=== PATIENT | male | born 1960 | race Caucasian/White ===

== ENCOUNTER 2018-03-24 15:06 | Observation (INO) ==
[2018-03-24] MEDS ORDERED: Ondansetron ODT 4 MG TAB.RAPDIS SL ONE (15:21)
[2018-03-24] MEDS ORDERED: diazePAM 10 MG/2 ML SYRINGE IVP ONE (15:21)
[2018-03-24] MEDS ORDERED: Tdap (Boostrix) Vaccine 0.5 ML SYRINGE IM ONE (15:23)
--- NOTE | 2018-03-24 15:28 | Emergency Department Note ---
Disposition Clinical Impression: Vertigo Syncope Qualifiers: Syncope type: unspecified Qualified Code(s): R55 - Syncope and collapse Disposition: Admitted As Inpatient Condition: Fair Time of Disposition: 17:29 General Adult HPI - General Chief complaint: ED Syncope Stated complaint: Passed Out Time Seen by Provider: 03/24/18 15:07 Source: patient, EMS Mode of arrival: EMS Limitations: no limitations Nursing Notes Reviewed: Yes Vital Signs Reviewed: Yes - History of Present Illness HPI Narrative: 57 yo male presents via EMS after a syncopal episode. He has a PMHx of vertigo, COPD, and PR with one stent. He states today he was sitting down when he got a sudden wave a vertigo, which he describes as the room spinning causing extreme nausea, and then he woke up on the ground. He still complains of the vertigo and also states his head and nose hurt. He admits to some shortness of breath and congestion along with this. He denies chest pain, abdominal pain, V/D/C, leg pain or leg swelling. He states he usually gets veritgo once or twice a month but has never had it this bad and denies any previous episodes of syncope. Pain Scale: 3 - Related Data Previous Rx's Medication Instructions Recorded Cyclobenzaprine [Flexeril] 10 mg PO BID #15 tablet 04/13/15 OxyCODONE/APAP 5/325 [Percocet 1 each PO Q4HR #15 tablet 04/13/15 5/325] Meclizine [Antivert] 25 mg PO TID PRN #20 tablet 09/14/15 Ondansetron ODT [Zofran ODT] 4 mg SL Q8HR #14 tab.rapdis 10/23/15 Allergies Allergy/AdvReac Type Severity Reaction Status Date / Time No Known Allergies Allergy Verified 10/23/15 12:37 All systems ED: reviewed and negative except as stated. Review of Systems: As Per HPI Constitutional: Denies: fever, chills, weakness Eyes: Denies: vision change ENT ED: Reports: congestion. Denies: ear pain, throat pain, dysphagia Cardiovascular: Reports: dyspnea on exertion, syncope. Denies: chest pain, palpitations, edema Respiratory: Reports: dyspnea. Denies: cough, wheezes, hemoptysis Gastrointestinal: Reports: nausea. Denies: abdominal pain, vomiting, diarrhea, constipation Musculoskeletal: Denies: back pain, neck pain Integumentary: Denies: rash Neurological: Reports: headache. Denies: weakness, numbness, paresthesias, confusion Psychiatric: Denies: anxiety Endocrine: Denies: fatigue Hematological/Lymphatic: Denies: easy bleeding Past Medical History - Past Medical History Medical history: Reports: COPD, hypertension, myocardial infarction, other Psychiatric history: Reports: no psych history - Social History Smoking Status: Former smoker Smokeless Tobacco Status: No Alcohol use: Reports: none Drug use: Reports: none Physical Exam There is a raised area of erythema on the left side of the patient's forehead that is tender to touch without fluctuance. He has a small, 0.1 cm linear cut above his left eye which is not currently bleeding and will not require repair. His nose is swollen without obvious deformity or deviation to his septum, and no evidence of bleeding. TMs visible B/L without erythema or signs of infection. Throat non-erythematous without visible lesions. Mucus membranes dry. Sensory exam grossly normal. Strength 5/5 in all extremities. DTRs wnl on all four extremities. CN 2-12 grossly intact. - General Limitations: no limitations General appearance: alert, in no apparent distress - Eye Eye exam: Present: normal appearance, PERRL, EOMI, nystagmus (horizontal ) - Neck Neck exam: Present: normal inspection. Absent: tenderness, lymphadenopathy - Chest Chest inspection: Present: normal inspection - Respiratory Respiratory exam: Present: other (diminished breath sounds B/L) - Cardiovascular Cardiovascular exam: Present: regular rate, normal rhythm - Abdominal Exam Abdominal exam: Present: soft, Non-Tender. Absent: distention, guarding, rebound - Extremities Exam Extremities exam: Present: normal inspection, normal capillary refill. Absent: tenderness, pedal edema, joint swelling, calf tenderness - Back Exam Back exam: Present: normal inspection. Absent: tenderness - Neurological Exam Neurological exam: Present: alert, oriented X3 - Psychiatric Psychiatric exam: Present: normal affect, normal mood - Skin Skin exam: Present: warm, dry, intact Course Vital Signs Temperature 97.4 F L 03/24/18 15:08 Pulse Rate 54 03/24/18 15:08 Respiratory Rate 14 03/24/18 15:08 Blood Pressure 129/81 03/24/18 15:08 O2 Sat by Pulse Oximetry 97 03/24/18 15:08 Temperature 97.4 F L 03/24/18 15:08 Pulse Rate 63 03/24/18 16:13 Respiratory Rate 14 03/24/18 16:13 Blood Pressure 132/85 03/24/18 16:13 O2 Sat by Pulse Oximetry 96 03/24/18 16:13 Oxygen Delivery Oxygen Delivery Room Air Medical Decision Making - MDM Narrative Medical decision making narrative: Due to this patient's new episode of syncope and cardiac history, we will rule out ACS with CBC, BMP, troponin, EKG and CXR. Will also do a head CT to evaluate for possible stroke. Will give fluids, Ativan and Zofran for relief of vertigo symptoms. 1725 - Pt lab results returned and were unremarkable including a first negative troponin. CXR shows no acute process. Head CT did not reveal any intracranial abnormality. Pt re-evaluated and is feeling much better after administration of fluids and medications. Will admit for further syncope workup. Dr. Herron has accepted the patient. - Medical Records Medical records reviewed: Yes I reviewed the patient's medical records. - Lab Data Lab results reviewed: Yes I reviewed the patient's lab results. Result diagrams: 03/24/18 15:18 03/24/18 15:18 Lab Results 03/24/18 03/24/18 03/24/18 Range/Units 15:18 15:18 15:18 WBC 9.9 (4.3-11.1) K/mcL RBC 4.54 (4.19-5.50) M/mcL Hgb 13.8 (12.9-16.9) g/dL Hct 42.0 (37.5-50.1) % MCV 92.5 (83.0-100.0) fL MCH 30.4 (28.0-33.3) pg MCHC 32.9 (31.6-35.5) g/dL RDW 13.2 (11.5-14.5) % Plt Count 219 (140-400) K/mcL MPV 9.4 (9.4-12.4) fL Immature Gran % 0.4 (0-4) % Seg Neutrophils % 84.4 % Lymphocytes % 7.7 % Monocytes % 6.7 % Eosinophils % 0.5 % Basophils % 0.3 % Neutrophils # 8.3 (1.6-8.9) K/mcL Lymphocytes # 0.8 (0.6-4.6) K/mcL Monocytes # 0.7 (0.0-1.3) K/mcL Eosinophils # 0.1 (0.0-0.6) K/mcL Basophils # 0.0 (0.0-0.2) K/mcL PT 12.5 H (9.4-12.1) Seconds INR 1.1 APTT (26.0-36.0) Seconds Sodium 137 (136-145) mEq/L Potassium 4.0 (3.5-5.1) mEq/L Chloride 107 (98-107) mEq/L Carbon Dioxide 28 (23-29) mEq/L BUN 14 (6-20) mg/dL Creatinine 0.83 (0.70-1.30) mg/dL Est GFR ( Amer) > 60 (> 60) Est GFR (Non-Af Amer) > 60 (> 60) BUN/Creatinine Ratio 17 (6-26) Glucose 97 (70-105) mg/dL Calculated Osmolality 284 (280-300) Calcium 9.1 (8.6-10.3) mg/dL Troponin I < 0.03 (< 0.04) ng/mL 03/24/18 Range/Units 15:20 WBC (4.3-11.1) K/mcL RBC (4.19-5.50) M/mcL Hgb (12.9-16.9) g/dL Hct (37.5-50.1) % MCV (83.0-100.0) fL MCH (28.0-33.3) pg MCHC (31.6-35.5) g/dL RDW (11.5-14.5) % Plt Count (140-400) K/mcL MPV (9.4-12.4) fL Immature Gran % (0-4) % Seg Neutrophils % % Lymphocytes % % Monocytes % % Eosinophils % % Basophils % % Neutrophils # (1.6-8.9) K/mcL Lymphocytes # (0.6-4.6) K/mcL Monocytes # (0.0-1.3) K/mcL Eosinophils # (0.0-0.6) K/mcL Basophils # (0.0-0.2) K/mcL PT (9.4-12.1) Seconds INR APTT 28.5 (26.0-36.0) Seconds Sodium (136-145) mEq/L Potassium (3.5-5.1) mEq/L Chloride (98-107) mEq/L Carbon Dioxide (23-29) mEq/L BUN (6-20) mg/dL Creatinine (0.70-1.30) mg/dL Est GFR ( Amer) (> 60) Est GFR (Non-Af Amer) (> 60) BUN/Creatinine Ratio (6-26) Glucose (70-105) mg/dL Calculated Osmolality (280-300) Calcium (8.6-10.3) mg/dL Troponin I (< 0.04) ng/mL - Radiology Data Radiology results reviewed: Yes I reviewed the patient's radiology results. - EKG Data EKG #1 EKG attestation: Yes I reviewed and interpreted this EKG. EKG results narrative: EKG done at 1523 on 03/24/2018 HR 57 bpm, SD interval 133, QRS duration 103, QT 442, QTc 431 Sinus rhythm without and ST segment elevations or depressions. No signs of Brugada or WPW. No signs of heart block.
[2018-03-24] MEDS ORDERED: 0.9 % Sodium Chloride 1,000 ML IVC ONE (15:30)
[2018-03-24] MEDS ORDERED: *HR* LORazepam 2 MG/ML VIAL IVP ONE (15:33)
[2018-03-24] MEDS ORDERED: Acetaminophen 325 MG TABLET PO ONE (16:21)
[2018-03-24 16:31] LABS: Basophils % 0.3 %; Eosinophils # 0.1 K/mcL (0.0-0.6); Eosinophils % 0.5 %; Hemoglobin 13.8 g/dL (12.9-16.9); Immature Granulocytes % 0.4 % (0-4); Lymphocytes # 0.8 K/mcL (0.6-4.6); Lymphocytes % 7.7 %; Mean Corpuscular HGB Conc 32.9 g/dL (31.6-35.5); Mean Corpuscular Hemoglobin 30.4 pg (28.0-33.3); Mean Corpuscular Volume 92.5 fL (83.0-100.0); Mean Platelet Volume 9.4 fL (9.4-12.4); Monocytes # 0.7 K/mcL (0.0-1.3); Monocytes % 6.7 %; Neutrophils # 8.3 K/mcL (1.6-8.9); Platelet Count 219 K/mcL (140-400); Red Blood Count 4.54 M/mcL (4.19-5.50); Red Cell Distribution Width 13.2 % (11.5-14.5); Segmented Neutrophils % 84.4 %
[2018-03-24 16:40] LABS: INR 1.1; Prothrombin Time 12.5 Seconds (9.4-12.1)
[2018-03-24 16:53] LABS: BUN/Creatinine Ratio 17 (6-26); Blood Urea Nitrogen 14 mg/dL (6-20); Calcium 9.1 mg/dL (8.6-10.3); Carbon Dioxide 28 mEq/L (23-29); Chloride 107 mEq/L (98-107); Glucose 97 mg/dL (70-105); Osmolality,Calculated 284 (280-300); Sodium 137 mEq/L (136-145); eGFR For Non-African Americans > 60 (> 60)
[2018-03-24 16:54] LABS: Troponin I < 0.03 ng/mL (< 0.04)
--- NOTE | 2018-03-24 17:28 | Emergency Department Note ---
Disposition Clinical Impression: Vertigo Syncope Qualifiers: Syncope type: unspecified Qualified Code(s): R55 - Syncope and collapse Disposition: Admitted As Inpatient Condition: Fair Referrals: Maverick Vyas MD [Primary Care Provider] - Forms: ED Satisfaction Letter General Adult HPI - General Chief complaint: ED Syncope Stated complaint: Passed Out Time Seen by Provider: 03/24/18 15:07 Source: patient, EMS Mode of arrival: EMS Limitations: no limitations - History of Present Illness Pain Scale: 3 - Related Data Previous Rx's Medication Instructions Recorded Cyclobenzaprine [Flexeril] 10 mg PO BID #15 tablet 04/13/15 OxyCODONE/APAP 5/325 [Percocet 1 each PO Q4HR #15 tablet 04/13/15 5/325] Meclizine [Antivert] 25 mg PO TID PRN #20 tablet 09/14/15 Meclizine [Antivert] 25 mg PO TID #20 tablet 10/23/15 Ondansetron ODT [Zofran ODT] 4 mg SL Q8HR #14 tab.rapdis 10/23/15 Allergies Allergy/AdvReac Type Severity Reaction Status Date / Time No Known Allergies Allergy Verified 10/23/15 12:37 Constitutional: Denies: fever, chills, weakness Eyes: Denies: vision change ENT ED: Reports: congestion. Denies: ear pain, throat pain, dysphagia Cardiovascular: Reports: dyspnea on exertion, syncope. Denies: chest pain, palpitations, edema Respiratory: Reports: dyspnea. Denies: cough, wheezes, hemoptysis Gastrointestinal: Reports: nausea. Denies: abdominal pain, vomiting, diarrhea, constipation Musculoskeletal: Denies: back pain, neck pain Integumentary: Denies: rash Neurological: Reports: headache. Denies: weakness, numbness, paresthesias, confusion Psychiatric: Denies: anxiety Endocrine: Denies: fatigue Hematological/Lymphatic: Denies: easy bleeding Past Medical History - Past Medical History Medical history: Reports: COPD, hypertension, myocardial infarction, other Psychiatric history: Reports: no psych history - Social History Smoking Status: Former smoker Smokeless Tobacco Status: No Alcohol use: Reports: none Drug use: Reports: none Physical Exam - General Limitations: no limitations General appearance: alert, in no apparent distress Course Vital Signs Temperature 97.4 F L 03/24/18 15:08 Pulse Rate 54 03/24/18 15:08 Respiratory Rate 14 03/24/18 15:08 Blood Pressure 129/81 03/24/18 15:08 O2 Sat by Pulse Oximetry 97 03/24/18 15:08 Temperature 97.4 F L 03/24/18 15:08 Pulse Rate 63 03/24/18 16:13 Respiratory Rate 14 03/24/18 16:13 Blood Pressure 132/85 03/24/18 16:13 O2 Sat by Pulse Oximetry 96 03/24/18 16:13 Oxygen Delivery Oxygen Delivery Room Air Medical Decision Making - Lab Data Result diagrams: 03/24/18 15:18 03/24/18 15:18 Lab Results 03/24/18 03/24/18 03/24/18 Range/Units 15:18 15:18 15:18 WBC 9.9 (4.3-11.1) K/mcL RBC 4.54 (4.19-5.50) M/mcL Hgb 13.8 (12.9-16.9) g/dL Hct 42.0 (37.5-50.1) % MCV 92.5 (83.0-100.0) fL MCH 30.4 (28.0-33.3) pg MCHC 32.9 (31.6-35.5) g/dL RDW 13.2 (11.5-14.5) % Plt Count 219 (140-400) K/mcL MPV 9.4 (9.4-12.4) fL Immature Gran % 0.4 (0-4) % Seg Neutrophils % 84.4 % Lymphocytes % 7.7 % Monocytes % 6.7 % Eosinophils % 0.5 % Basophils % 0.3 % Neutrophils # 8.3 (1.6-8.9) K/mcL Lymphocytes # 0.8 (0.6-4.6) K/mcL Monocytes # 0.7 (0.0-1.3) K/mcL Eosinophils # 0.1 (0.0-0.6) K/mcL Basophils # 0.0 (0.0-0.2) K/mcL PT 12.5 H (9.4-12.1) Seconds INR 1.1 APTT (26.0-36.0) Seconds Sodium 137 (136-145) mEq/L Potassium 4.0 (3.5-5.1) mEq/L Chloride 107 (98-107) mEq/L Carbon Dioxide 28 (23-29) mEq/L BUN 14 (6-20) mg/dL Creatinine 0.83 (0.70-1.30) mg/dL Est GFR ( Amer) > 60 (> 60) Est GFR (Non-Af Amer) > 60 (> 60) BUN/Creatinine Ratio 17 (6-26) Glucose 97 (70-105) mg/dL Calculated Osmolality 284 (280-300) Calcium 9.1 (8.6-10.3) mg/dL Troponin I < 0.03 (< 0.04) ng/mL 03/24/18 Range/Units 15:20 WBC (4.3-11.1) K/mcL RBC (4.19-5.50) M/mcL Hgb (12.9-16.9) g/dL Hct (37.5-50.1) % MCV (83.0-100.0) fL MCH (28.0-33.3) pg MCHC (31.6-35.5) g/dL RDW (11.5-14.5) % Plt Count (140-400) K/mcL MPV (9.4-12.4) fL Immature Gran % (0-4) % Seg Neutrophils % % Lymphocytes % % Monocytes % % Eosinophils % % Basophils % % Neutrophils # (1.6-8.9) K/mcL Lymphocytes # (0.6-4.6) K/mcL Monocytes # (0.0-1.3) K/mcL Eosinophils # (0.0-0.6) K/mcL Basophils # (0.0-0.2) K/mcL PT (9.4-12.1) Seconds INR APTT 28.5 (26.0-36.0) Seconds Sodium (136-145) mEq/L Potassium (3.5-5.1) mEq/L Chloride (98-107) mEq/L Carbon Dioxide (23-29) mEq/L BUN (6-20) mg/dL Creatinine (0.70-1.30) mg/dL Est GFR ( Amer) (> 60) Est GFR (Non-Af Amer) (> 60) BUN/Creatinine Ratio (6-26) Glucose (70-105) mg/dL Calculated Osmolality (280-300) Calcium (8.6-10.3) mg/dL Troponin I (< 0.04) ng/mL Attestation Statement - Attestation Attestation: I examined this patient and my medical decision-making was reviewed with the Resident Physician. I agree with the documented findings, disposition and treatment plan as described except to the extent set forth below. 57 year old male presents to the ED with complaints of syncope and history of vertigo and this is the first time he has had syncopal episode with this time which is a first. Chris has a cardiac history of stents and ACS/STEMI om the past. Patient did hit his head in the process and HCt is cler although there is concern for cardiogenic syncope vs posterior stroke. We will admit ot medicine
[2018-03-24] MEDS ORDERED: Naloxone 0.4 MG/ML INJ IVP PRN (18:18)
--- NOTE | 2018-03-24 18:19 | Internal Med History&Physical ---
Date of Encounter: 03/24/18 Time of Encounter: 18:17 Internal Medicine - H&P: HPI Chief complaint: Syncope Admitted From: Emergency Dept Plans for Post Hospital Care: at Home History of present illness: Mr. Dawkins is a 57 year old male with history of chronic vertigo and has been under care of ENT in the past, CAD status post 1 stent, COPD, hypertension, SEFERINO on CPAP presented to ER for further evaluation of syncope. Patient passed out completely when he was sitting down on chair and fell on floor headdown while in the meeting at office. Patient has chronic vertigo but never had syncope episode. Patient also never got evaluated with neurologist. In ER initial chest x-ray CT brain with no acute finding and no acute finding in the lab. ER physician called on-call hospitalists for the admission and syncope workup. During my evaluation patient was still feeling vertigo and hesitant to get out of the bed. Patient denies fever chills nausea vomiting headache chest pain shortness of breath cough abdominal pain urinary bowel complaint. Past Med Surg Social Fam HX - Past Medical History Medical history: COPD, hypertension, myocardial infarction, other Additional medical history: borderline diabetic Psychiatric history: no psych history - Past Surgical History Additional surgical history: stent x1 - Social History Smoking Status: Former smoker Smokeless Tobacco Status: No Alcohol use: none Drug use: none Internal Medicine - H&P: Meds Cyclobenzaprine [Flexeril] 10 mg PO BID #15 tablet 04/13/15 [Rx] OxyCODONE/APAP 5/325 [Percocet 5/325] 1 each PO Q4HR #15 tablet 04/13/15 [Rx] Meclizine [Antivert] 25 mg PO TID PRN #20 tablet 09/14/15 [Rx] Ondansetron ODT [Zofran ODT] 4 mg SL Q8HR #14 tab.rapdis 10/23/15 [Rx] Allergy/AdvReac Type Severity Reaction Status Date / Time No Known Allergies Allergy Verified 10/23/15 12:37 All Systems PM: A 10-system review of systems was performed and is negative for pertinent findings except as documented above in the HPI. - Constitutional Vitals: Temp Pulse Resp BP Pulse Ox 97.4 F L 63 14 132/85 96 03/24/18 15:08 03/24/18 16:13 03/24/18 16:13 03/24/18 16:13 03/24/18 16:13 Exam: General appearance: No acute distress Head exam: Small raised area of erythema on left side of forehead, tender without fluctuance with a small linear contact 0.2 cm above his left eye with no active bleeding. Eye exam: EOMI, PERRLA ENT exam: Moist oral mucosa Neck nontender, supple Respiratory exam: Clear to auscultation bilaterally Cardiovascular exam: Regular rate and rhythm, no systolic murmur Abdominal exam: Soft, nontender, nondistended, positive bowel sounds Extremities exam: No calf tenderness, no pedal edema Present: Skin-no rash, warm, dry, intact Neurological exam: Alert, awake, oriented 3, CN II-XII intact, no focal deficits. No facial droop. Normal speech. Patient is hesitant to walk as feeling dizzy Internal Med - H&P Results - Labs CBC & Chem 7: 03/24/18 15:18 03/24/18 15:18 Labs: Short CBC 03/24/18 Range/Units 15:18 WBC 9.9 (4.3-11.1) K/mcL Hgb 13.8 (12.9-16.9) g/dL Hct 42.0 (37.5-50.1) % Plt Count 219 (140-400) K/mcL Neutrophils # 8.3 (1.6-8.9) K/mcL BMP 03/24/18 15:18 Sodium 137 Potassium 4.0 Chloride 107 Carbon Dioxide 28 BUN 14 Creatinine 0.83 Glucose 97 Calcium 9.1 Cardiac Enzymes 03/24/18 Range/Units 15:18 Troponin I < 0.03 (< 0.04) ng/mL - Impressions ITS Impressions Chest X-Ray 03/24/18 15:18 IMPRESSION: No acute process. D/ / Gary Eric MD / Gary Eric MD Interpreting Provider: Gary Eric MD Head CT 03/24/18 15:18 IMPRESSION: No acute intracranial abnormality. D/ / Anthony Vences MD / Anthony Vences MD Interpreting Provider: Anthony Vences MD - Assessment and plan (1) Syncope Current Visit: Yes Status: Acute Assessment and plan: First episode, witnessed. He loss consciousness for 10-15 seconds with no associated seizure. Needs to get evaluated neurological and cardiology as patient has history of CAD. Initial cardiac evaluation EKG and troponin with no acute finding but continue telemetry, serial troponin monitoring and echocardiogram. As patient has chronic vertigo and never got evaluated by neurologist therefore I consulted neurology. MRI brain, carotid ultrasound, neuro check, fall precaution ordered . Patient my injury and forehead but does not seem like need any repair therefore continue conservative management with monitoring. Qualifiers: Syncope type: unspecified Qualified Code(s): R55 - Syncope and collapse (2) Vertigo Current Visit: Yes Status: Acute Assessment and plan: Acute on chronic. Never got evaluated by a neurologist. (3) CAD (coronary artery disease) Current Visit: Yes Status: Acute Assessment and plan: Stable. No acute finding in EKG and troponin negative. Will put patient in telemetry and history of cardiac disease with recent syncope, serial troponin and echocardiogram. Continue home medicine. Qualifiers: Qualified Code(s): I25.10 - Atherosclerotic heart disease of circle coronary artery without angina pectoris (4) Hypertension Current Visit: Yes Status: Acute Assessment and plan: Continue to monitor. Home medicine. Qualifiers: Hypertension type: essential hypertension Qualified Code(s): I10 - Es sential (primary) hypertension (5) SEFERION (obstructive sleep apnea) Current Visit: Yes Status: Chronic Assessment and plan: continue home CPAP (6) COPD (chronic obstructive pulmonary disease) Current Visit: Yes Status: Chronic Assessment and plan: Stable. Continue home medicine Qualifiers: COPD type: unspecified COPD Qualified Code(s): J44.9 - Chronic obstructive pulmonary disease, unspecified (7) DVT prophylaxis Current Visit: Yes Status: Acute Assessment and plan: SCDs P - Time Spent With Patient Total time spent is greater than 50% in coordination of care (as documented) at patient's floor/unit and/or counseling patient: 25 - 35 minutes
[2018-03-24 19:06] LABS: Thyroid Stimulating Hormone 0.292 mcIU/mL (0.340-5.600)
[2018-03-25 04:39] LABS: Basophils % 0.4 %; Eosinophils # 0.1 K/mcL (0.0-0.6); Eosinophils % 0.9 %; Hematocrit 40.8 % (37.5-50.1); Hemoglobin 13.7 g/dL (12.9-16.9); Immature Granulocytes % 0.3 % (0-4); Lymphocytes # 1.4 K/mcL (0.6-4.6); Lymphocytes % 21.2 %; Mean Corpuscular HGB Conc 33.6 g/dL (31.6-35.5); Mean Corpuscular Hemoglobin 30.2 pg (28.0-33.3); Mean Corpuscular Volume 90.1 fL (83.0-100.0); Mean Platelet Volume 9.3 fL (9.4-12.4); Monocytes # 0.7 K/mcL (0.0-1.3); Monocytes % 9.9 %; Neutrophils # 4.5 K/mcL (1.6-8.9); Platelet Count 210 K/mcL (140-400); Red Blood Count 4.53 M/mcL (4.19-5.50); Red Cell Distribution Width 13.2 % (11.5-14.5); Segmented Neutrophils % 67.3 %
[2018-03-25 04:56] LABS: Bilirubin,Urine Negative (Negative); Blood,Urine Negative (Negative); Clarity,Urine Clear (Clear); Color,Urine Yellow (Yellow); Glucose,Urine (UA) Normal (Normal); Ketones,Urine Negative (Negative); Leukocyte Esterase,Urine Negative (Negative); Nitrite,Urine Negative (Negative); PH,Urine 6.5 pH Units (5.0-8.0); Protein,Urine Negative (Neg-Trace); Specific Gravity,Urine 1.012 (1.010-1.025); Urobilinogen,Urine Normal (Normal)
[2018-03-25 04:57] LABS: Alanine Aminotransferase 15 Units/L (7-52); Albumin 3.5 g/dL (3.5-5.7); Albumin/Globulin Ratio 1.3 (1.1-2.2); Alkaline Phosphatase 58 Units/L (34-104); Aspartate Amino Transferase 13 Units/L (13-39); BUN/Creatinine Ratio 14 (6-26); Bilirubin,Indirect 0.4 mg/dL (0.0-1.2); Bilirubin,Total 0.4 mg/dL (0.3-1.0); Blood Urea Nitrogen 12 mg/dL (6-20); Calcium 9.2 mg/dL (8.6-10.3); Carbon Dioxide 27 mEq/L (23-29); Chloride 108 mEq/L (98-107); Chol/HDL Ratio 4.4 (0-4.9); Cholesterol 114 mg/dL (< 200); Globulin 2.8 g/dL (2.4-3.5); Glucose 101 mg/dL (70-105); HDL Cholesterol 26 mg/dL (40-59); LDL Cholesterol,Calculated 48 mg/dL (0-99); Osmolality,Calculated 286 (280-300); Potassium 3.9 mEq/L (3.5-5.1); Sodium 138 mEq/L (136-145); Total Protein 6.3 g/dL (6.4-8.9); Triglycerides 202 mg/dL (< 150); eGFR For Non-African Americans > 60 (> 60)
--- NOTE | 2018-03-25 08:28 | Neurology - Consult Note ---
Addendum entered and electronically signed by Eleno Montiel MD 03/25/18 13:42: Patient seen and examined in the presence of Dr. Asad Mcdaniel. Care discussed and imaging reviewed together. I agree with his history taking, physical examination, assessment and plan outlined below. In summary, this is a 57-year-old man with past medical history significant for recurrent dizziness, who developed a syncopal episode after experiencing similar episodes of vertigo which is more severe in intensity. Patient has been experiencing in the last 2 and half years, intermittent dizziness described as room spinning sensation, associated with bilateral high-pitched tinnitus during the episodes, associated with nausea and balance difficulty lasting anywhere from 12-24 hours before to total resolution of symptoms. Between the episodes, he has no significant neurological discomforts. Has seen ENT specialist in the past who Him on meclizine as needed basis. He has not had vestibular rehabilitation in the past. Overall speaking, symptoms are most consistent with peripheral etiology of dizziness especially Meniere syndrome. The patient currently has nonfocal neurological examination with negative MRI of the brain therefore the dizziness is likely not syncopal in etiology. Would recommend outpatient ENT evaluation and he certainly can benefit from getting serial hearing testing which can show abnormality during an attack and also after repetitive attacks. Ordered CTA of neck and brain to assess possible intracranial atherosclerosis. Patient is okay to be discharged home from neurology perspective. Prognosis of such symptoms difficult to predicate and they tend to improve after development of hearing loss. Patient may benefit from vestibular rehabilitation Total time spend on this case is approximately 70 minutes, more than 50% was directed at coordination of care. All questions answered. Original Note: Date of Encounter: 03/25/18 Time of Encounter: 08:28 Assessment and Plan (1) Syncope Current Visit: Yes Status: Acute Patient lost consciousness for 10-15 seconds. Episode was associated with room spinning sensation and palpations. This may be related to a vasovagal response. Patient is now asymptomatic and back to baseline. The episode was witnessed by his co-workers who denied any associated seizure activity. No prior history of seizures. No need for inpatient EEG at this time. CT head revealed no acute intracranial abnormality. MRI head revealed no acute intracranial abnormality and mild chronic white matter microvascular ischemic changes. Carotid duplex revealed non-stenotic plaque bilaterally. CTA head and neck ordered. Echo revealed LVEF 60-65%, asymmetric hypertrophy of basal septum, moderate LV diastolic dysfunction, mild pulmonary hypertension Continue telemetry monitoring May need cardiology evaluation. Further recommendations based on CTA results. Qualifiers: Syncope type: unspecified Qualified Code(s): R55 - Syncope and collapse (2) Vertigo Current Visit: Yes Status: Chronic Patient has been treated by ENT for chronic vertigo is the past. He will benefit from continued outpatient management per ENT. (3) SEFERINO (obstructive sleep apnea) Current Visit: Yes Status: Chronic Patient with syncopal episode, unlikely that this episode was related to SEFERINO. Continue CPAP use [facility] Recommend outpatient management to assess compliance (4) COPD (chronic obstructive pulmonary disease) Current Visit: No Status: Chronic Continue home meds Qualifiers: COPD type: unspecified COPD Qualified Code(s): J44.9 - Chronic obstructive pulmonary disease, unspecified (5) Hypertension Current Visit: Yes Status: Chronic Blood pressure controlled Continue home meds Qualifiers: Hypertension type: essential hypertension Qualified Code(s): I10 - Essential (primary) hypertension (6) CAD (coronary artery disease) Current Visit: No Status: Chronic Continue home meds Qualifiers: Coronary Disease-Associated Artery/Lesion type: unspecified vessel or lesion type [place] vs. transplanted heart: [place] heart Associated angina: without angina Qualified Code(s): I25.10 - Atherosclerotic heart disease of [place] coronary artery without angina pectoris History of Present Illness Chief complaint: Syncope HPI: Mr. Dawkins is a 57 year old male with a PMH of COPD, hypertension, CAD, and SEFERINO on CPAP who presented for further evaluation of syncope. Patient lost consciousness for 10-15 seconds after he sat down after feeling dizzy while stand during a meeting at work. He fell face first onto the floor and sustained a small abrasion to the bridge of his nose. The episode was witnessed by his co-workers who denied any associated seizure activity. Patient was confused for a brief period after regaining consciousness but denied biting his tongue, urinary incontinence, or history of seizure or syncopal events. Patient described the dizziness episode "like being on a ship". Patient reports associ ated palpitations during these episodes but denies headaches. He has been treated with Meclizine by ENT for chronic vertigo is the past and was on FMLA for vertigo 1.5 years ago. He has been off Meclizine for 6 months, he usually manages to work by watching his feet as he walks, and symptoms resolve without treatment after about 24 hours with rest. Patient reported vertigo has now resolved and he is ambulating without difficulty. Neurology was consulted for further evaluation. is at bedside during time of exam. Past Med Surg Social Fam HX - Past Medical History Medical history: COPD, hyperlipidemia, hypertension, myocardial infarction, other Additional medical history: borderline diabetic Psychiatric history: no psych history - Past Surgical History Surgical History: cholecystectomy Additional surgical history: stent x1 - Social History Smoking Status: Former smoker Smokeless Tobacco Status: No Alcohol use: rarely Drug use: none - Family History Mother Hx Family Cardiac Disorders: Yes (COPD) Hx Family Neurologic Disorders: Yes (strokes, seizures) Father Hx Family Cardiac Disorders: Yes (CABG, Stents) Sister Hx Family Genitourinary Disorders: Yes (one kidney) Medications and Allergies Acetaminophen [Tylenol Arthritis] 1,300 mg PO BID 03/24/18 [History] Acetaminophen [Tylenol] 1,000 mg PO DAILY 03/24/18 [History] Atorvastatin [Lipitor] 10 mg PO HS 03/24/18 [History] Isosorbide MONOnitrate [Isosorbide Mononitrate ER] 30 mg PO DAILY 03/24/18 [History] Metoprolol Succinate [Toprol Xl] 25 mg PO DAILY 03/24/18 [History] Prasugrel [Effient] 10 mg PO DAILY 03/24/18 [History] Ranitidine HCl [Heartburn Relief] 150 mg PO DAILY 03/24/18 [History] Ranolazine [Ranexa] 1,000 mg PO Q12H 03/24/18 [History] Allergy/AdvReac Type Severity Reaction Status Date / Time No Known Allergies Allergy Verified 03/24/18 21:26 All Systems: The remainder of the systems were reviewed and are negative - Constitutional Constitutional ROS IM: no anorexia, no chills, no fatigue, no fever(s), no lethargy - Eyes Eyes: bilateral: blurred vision, diplopia - Nose, Mouth, Throat Nose, mouth and throat: dizziness, vertigo, no dry mouth, no epistaxis, no mouth lesions, no neck pain - Cardiovascular Cardiovascular ROS IM: palpitations, no chest pain, no irregular heart rhythm - Respiratory Respiratory IM: no cough, no wheezing - Gastrointestinal Gastrointestinal: no bloating, no diarrhea, no heartburn, no nausea, no vomiting - Genitourinary Genitourinary ROS: no urinary frequency, no urinary incontinence, no urinary urgency - Musculoskeletal Musculoskeletal ROS IM: no back pain, no joint swelling, no limited range of motion, no myalgias, no neck pain, no numbness, no tingling - Integumentary Integumentary IM: erythema (nose abrasion), new lesions - Neurological Neurological ROS: disequilibrium, dizziness, syncope, vertigo, no abnormal gait, no abnormal speech, no behavioral changes, no burning sensations, no confusion, no focal weakness, no frequent falls, no headache(s), no lack of coordination, no memory loss, no numbness, no paresthesias, no restless legs, no sensory deficit, no tingling, no tremor(s), no weakness - Psychiatric Psychiatric general PM: no anxiety, no confusion Physical Examination - Vital Signs Vital Signs: Initial Vital Signs Temp Pulse Resp BP Pulse Ox 97.4 F L 54 14 129/81 97 03/24/18 15:08 03/24/18 15:08 03/24/18 15:08 03/24/18 15:08 03/24/18 15:08 - Constitutional General appearance: comfortable - Neurologic Sensorimotor examination: intact Detailed motor examination: grossly full strength in all extremities, full strength in all major muscle groups Motor examination - right side: 5/5: deltoids, biceps, triceps, wrist flexion, wrist extension, aerodynamicist, hip flexors, tibialis Anterior, quadriceps, toe extension (EHL), plantarflexion Motor examination - left side: 5/5: deltoids, biceps, triceps, wrist flexion, wrist extension, hip flexors, aerodynamicist, quadriceps, tibialis Anterior, toe extension (EHL), plantarflexion Detailed sensory examination: intact, light touch Reflex and gait examination: intact Reflexes: Biceps: 2+, Triceps: 2+, Brachioradialis: 2+, Patella: 2+, Achilles: 2+ Mental Status Examination: awake, alert, oriented to person, oriented to place, oriented to time, follows commands appropriately, answers questions appropriately, no agnosia, no aphasia, no aproxia Cranial nerve examination: PERRL, EOMI, visual guillaume intact, sensory to face intact, mastication intact, no facial asymmetry is present, no dysarthria, hearing is intact symmetrically, flexes SCM and trapezius muscles symmetrically with full power, tongue protrudes midline, no atrophy or facial fasiculations present Cerebellar examination: no dysmetria, performs finger to nose and heel to hauser symmetrically without ataxia, no gait ataxia, no truncal ataxia, no difficulty with rapid alternating movements Results - Laboratory Findings CBC and BMP: 03/25/18 04:15 03/25/18 04:15 Abnormal lab findings: Abnormal lab results MPV 9.3 fL (9.4-12.4) L 03/25/18 04:15 PT 12.5 Seconds (9.4-12.1) H 03/24/18 15:18 Chloride 108 mEq/L (98-107) H 03/25/18 04:15 Serum Total Protein 6.3 g/dL (6.4-8.9) L 03/25/18 04:15 Triglycerides 202 mg/dL (< 150) H 03/25/18 04:15 VLDL Cholesterol, Calc 40 mg/dL (< 31) H 03/25/18 04:15 HDL Cholesterol 26 mg/dL (40-59) L 03/25/18 04:15 TSH 0.292 mcIU/mL (0.340-5.600) L 03/24/18 15:18 - Diagnostic Findings Additional findings: ITS Impressions Chest X-Ray 03/24/18 15:18 IMPRESSION: No acute process. D/ / Gary Eric MD / Gary Eric MD Interpreting Provider: Gary Eric MD Head CT 03/24/18 15:18 IMPRESSION: No acute intracranial abnormality. D/ / Anthony Vences MD / Anthony Vences MD Interpreting Provider: Anthony Vences MD Brain MRI 03/24/18 18:24 IMPRESSION: 1. No acute intracranial abnormality. 2. Mild chronic white matter microvascular ischemic changes. D/ / Marvin Hull / Marvin Hull Interpreting Provider: Marvin Hull Consult Discharge Plan - Plan Referrals: Maverick yVas MD [Primary Care Provider] -
[2018-03-25] MEDS ORDERED: Famotidine 20 MG TABLET PO SCH (10:15)
[2018-03-25] MEDS ORDERED: Isosorbide MONOnitrate (24 HR) 30 MG TAB.ER.24H PO SCH (10:15)
[2018-03-25] MEDS ORDERED: Ranolazine 500 MG TAB.ER.12H PO SCH ×2 (10:15→21:00)
[2018-03-25] MEDS ORDERED: Isovue-370 500 ML INFUS..BTL IV ONE (11:27)
[2018-03-25 12:11] VITALS: BP 137/85
--- NOTE | 2018-03-25 12:53 | Discharge Summary ---
Orders not resulted at time of discharge: Pending orders 03/25/18 13:30 CT angio head [CT] Routine CTA Neck [CT angio neck] [CT] Routine Date of Encounter: 03/25/18 Time of Encounter: 12:50 - Discharge Diagnosis (1) Syncope Priority: Primary Status: Resolved Qualifiers: Syncope type: unspecified Qualified Code(s): R55 - Syncope and collapse (2) Vertigo Priority: Secondary Status: Chronic (3) CAD (coronary artery disease) Priority: Secondary Status: Chronic Qualifiers: Coronary Disease-Associated Artery/Lesion type: unspecified vessel or lesion type [place] vs. transplanted heart: [place] heart Associated angina: without angina Qualified Code(s): I25.10 - Atherosclerotic heart disease of [place] coronary artery without angina pectoris (4) Hypertension Priority: Secondary Status: Chronic Qualifiers: Hypertension type: essential hypertension Qualified Code(s): I10 - Essential (primary) hypertension (5) SEFERINO (obstructive sleep apnea) Priority: Secondary Status: Chronic (6) COPD (chronic obstructive pulmonary disease) Priority: Secondary Status: Chronic Qualifiers: COPD type: unspecified COPD Qualified Code(s): J44.9 - Chronic obstructive pulmonary disease, unspecified (7) DVT prophylaxis Priority: Secondary Status: Acute Hospital course: Mr. Dawkins is a 57 year old male who is admitted following a syncopal event at work. Neuroimaging has been unremarkable and without acute findings. Echocardiogram grossly normal. Bilateral carotid Dopplers without flow-limiting stenosis. Negative for orthostasis. Instructed to follow-up with PCP within 1 at discharge. The patient is endorsing a history of chronic palpitations which occur frequently and arrhythmias. No events captured on EKG, no events on telemetry throughout stay. Patient may benefit from outpatient cardiology follow-up with syncopal events. Discharge discussed with: patient, nurse - Time Spent with Patient Total time spent providing and/or coordinating discharge services: Less than 30 minutes - Discharge Medications Home Medications: Acetaminophen [Tylenol Arthritis] 1,300 mg PO BID 03/24/18 [History] Acetaminophen [Tylenol] 1,000 mg PO DAILY 03/24/18 [History] Atorvastatin [Lipitor] 10 mg PO HS 03/24/18 [History] Isosorbide MONOnitrate [Isosorbide Mononitrate ER] 30 mg PO DAILY 03/24/18 [History] Metoprolol Succinate [Toprol Xl] 25 mg PO DAILY 03/24/18 [History] Prasugrel [Effient] 10 mg PO DAILY 03/24/18 [History] Ranitidine HCl [Heartburn Relief] 150 mg PO DAILY 03/24/18 [History] Ranolazine [Ranexa] 1,000 mg PO Q12H 03/24/18 [History] Allergies/Adverse Reactions: Allergy/AdvReac Type Severity Reaction Status Date / Time No Known Allergies Allergy Verified 03/24/18 21:26 Date of admission: 03/24/18 17:58 Primary care physician: Maverick Vyas MD Consults: 03/24/18 18:24 Consult to Occupational Therapy [CONS] Routine Comment: Evaluate, develop and implement POC Reason for Consult: Generalized weakness Does patient have active BEDREST order?: Yes Is patient medically & hemodynamically stable?: Yes Patient assessed for mobility or mobilized this visit?: No Consult to Physical Therapy [CONS] Routine Comment: Evaluate, develop and implement POC Reason for Consult: Generalized weakness Does patient have active BEDREST order?: No Is patient medically & hemodynamically stable?: Yes Patient assessed for mobility or mobilized this visit?: No Consult to Land Surveyor Assistant [CONS] Routine Reason for SW Consult: Discharge plan 03/24/18 18:27 Consult to Neurology [CONS] Routine Consulting Provider: Neu[facility] Reason for Consult: syncope Call Completed: No Discharging clinician: Michael Frye Anticipated date of discharge: 03/25/18 - Constitutional Vitals: Temp Pulse Resp BP Pulse Ox 97.6 F 70 16 137/85 96 03/25/18 10:22 03/25/18 12:09 03/25/18 10:22 03/25/18 12:09 03/25/18 10:22 General appearance: Present: A&O X 3 Exam: see exam - Head Head exam: Present: atraumatic, normocephalic - Eye Eye exam: Present: PERRL, conjuntiva pink, sclera anicteric Pupils: Present: PERRL - Neck Neck exam general surgery: Present: supple, trachea midline. Absent: lymphadenopathy - Respiratory Respiratory exam: Present: CTAB. Absent: accessory muscle use, rales, rhonchi, wheezes - Cardiovascular Cardiovascular exam: Present: RRR, +S1, +S2. Absent: diastolic murmur, gallop, rubs, systolic murmur - GI/Abdominal GI/Abdominal exam: Present: normal bowel sounds, soft, no peritoneal signs. Absent: distended, tenderness - Extremities Exam Extremities exam: Present: warm, radial pulses palpable and symmetrical. Absent: calf tenderness, cyanotic, pedal edema - Neurological Exam Neurological exam: Present: CN II-XII intact, oriented X3, no focal deficits. Absent: pronater drift, facial droop, speech deficit - Skin Skin exam: Present: dry, intact - Patient Status Disposition: Home, Self-Care Condition: Fair Functional capacity at discharge: independent ambulation Overall status at discharge: patient is progressing back to baseline - Discharge Instructions Instructions: Syncope (DC) Follow Up With: Maverick Vyas MD [Primary Care Provider] - - Diet and Activity Activity: increase activity as tolerated, resume usual activities as tolerated Diet: low fat, low cholesterol, low salt diet
--- NOTE | 2018-03-25 15:00 | Electrocardiograph Report ---
[address] [place], [place] [address] Test Date: 2018-03-24 Pat Name: Williams Dawkins Department: [id number] Room: 3B Gender: M Burglar Alarm Operator: : 1960 Requested By: Sneha Sandoval Order Number: [id number] Reading MD: Ron East Measurements Intervals [place] Rate: 57 P: 54 [place]: 133 QRS: 56 QRSD: 103 T: 41 QT: 442 QTc: 431 Interpretive Statements Sinus rhythm Electronically Signed On 03-25-2018 14:59:10 EST by Ron East
[2018-03-25] MEDS ORDERED: Acetaminophen 325 MG TABLET PO SCH (17:00)
== END 2018-03-25 14:11 | disposition home or self-care (01) ==
LOC: 3BNU 15:06 → EMEROOARM 15:06 → SUATTDRO 17:58 → 3BNU 19:35
PROVIDERS: ADMIT Internal Medicine Cardiovascular Disease; ATTEND Nurse Practitioner